=== PATIENT | female | born 1950 | race Caucasian/White ===

== ENCOUNTER → 2016-10-07 | Outpatient (CLI) | payer MEDICARE ==
[~2016-10-07] MED LIST: ALPR1T PO; BUPR150T14 PO; BUPR150T7 PO; CALC-654 PO; CALC1CAP21 PO; CARV12.5 PO; CHOL20003 PO; FESO8TAB PO; HYDR25TA4 PO; LEVO500T2 PO; MULT-301 PO; NAPR220C PO; OMEP-10 PO
== END ==
LOC: RAD 09:54
PROVIDERS: ATTEND Internal Medicine
DX: Z12.31 Encounter for screening mammogram for malignant neoplasm of breast (principal)
CPT/HCPCS: 77067

== ENCOUNTER 2017-11-11 00:12 | Emergency (ER) | payer MEDICARE ==
[~2017-11-11] VITALS: Ht 177.8 cm; Wt 68.0 kg
[2017-11-11] MEDS ORDERED: LACTATED RINGERS 1,000 ML IV ONE (00:16)
--- NOTE | 2017-11-11 00:24 | ED Fall/Injury ---
General Chief Complaint: Trauma-Non Activation Stated Complaint: FALL Source: family (DAUGHTER), EMS Exam Limitations: intoxication, other (PT HAS NO RECOLLECTION OF EVENT) History of Present Illness Date Seen by Provider: Nov 11, 2017 Time Seen by Provider: 00:10 Initial Comments PT ARRIVES VIA EMS FROM HOME--CERVICAL COLLAR IN PLACE PT FELL IN THE BATHROOM AND HIT HER HEAD, WITH REPORTED LOSS OF CONSCIOUSNESS OF AT LEAST 30 SECONDS PER DAUGHTER --DAUGHTER DID NOT ACTUALLY WITNESS IT, BUT HEARD IT, AND FOUND HER UNRESPONSIVE ON THE FLOOR PT C/O PAIN TO BACK OF HEAD DAUGHTER REPORTED TO EMS THAT PT HAS BEEN DRINKING WINE, AND HAS HAD AT LEAST 4- 5 GLASSES OF WINE TONIGHT. PT STATES SHE HAS NOT EATEN AT ALL TODAY AND DOES NOT DRINK VERY OFTEN PT HAS NO RECOLLECTION OF EVENT, DOES NOT KNOW WHAT SHE HIT HER HEAD ON, AND DOES NOT KNOW WHAT SHE WAS DOING IN THE BATHROOM, BUT ARRIVES IN HER SHIRT AND UNDERWEAR ONLY. DENIES ANY CHANGES IN VISION DENIES NAUSEA/VOMITING DENIES PARESTHESIAS OR MOTOR DEFICITS DENIES PAIN ANYWHERE EXCEPT THE BACK OF HER HEAD Allergies and Home Medications Allergies Coded Allergies: No Known Drug Allergies (Unverified , 08/25/15) Home Medications Alprazolam 1 Mg Tab, 1 MG PO DAILY, (Reported) Bupropion HCl 150 Mg Tab.er.24h, 300 MG PO DAILY, (Reported) TAKES 2 (150MG) TABLETS Calcium Carbonate/Vitamin D3 1 Each Capsule, 1 CAP PO DAILY, (Reported) Carvedilol 12.5 Mg Tablet, 12.5 MG PO BID, (Reported) Cholecalciferol (Vitamin D3) 2,000 Unit Capsule, 2,000 UNIT PO DAILY, (Reported) Fesoterodine Fumarate 8 Mg Tab.sr.24h, 8 MG PO DAILY, (Reported) Hydrochlorothiazide 25 Mg Tablet, 25 MG PO DAILY, (Reported) Levofloxacin 500 Mg Tablet, 500 MG PO DAILY Prescribed by: KEITH NUNEZ on 08/27/15 0800 Multivitamin 1 Each Tablet, 1 TAB PO DAILY, (Reported) Omeprazole 20 Mg Capsule.dr, 20 MG PO DAILY, (Reported) Patient Home Medication List Home Medication List Reviewed: Yes Review of Systems Constitutional: see HPI Musculoskeletal: No back pain, No neck pain Psychiatric/Neurological: See HPI Past Mqyoxmq-Fhyafb-Nhxjnt Hx Patient Social History Alcohol Use: Occasionally Uses Recreational Drug Use: No Smoking Status: Never a Smoker Recent Foreign Travel: No Contact w/Someone Who Travel: No Immunizations Up To Date Date of Influenza Vaccine: Feb 07, 2015 Past Medical History Surgeries: Yes (EGD/COLONOSCOPY) Section, Hysterectomy Respiratory: No Currently Using CPAP: No Currently Using BIPAP: No Cardiac: Yes Hypertension Neurological: No Reproductive Disorders: Yes (, HYSTERECTOMY) Female Reproductive Disorders: Denies 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, 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 Sexually Transmitted Disease: No HIV/AIDS: No Genitourinary: No Gastrointestinal: Yes Colitis Musculoskeletal: No Endocrine: No HEENT: No Cancer: No Psychosocial: Yes Anxiety Integumentary: No Blood Disorders: No Family Medical History Arthritis No Pertinent Family Hx Physical Exam Vital Signs Vital Signs - First Documented 11/11/17 00:15 Temp 98.2 Pulse 71 Resp 14 B/P (MAP) 119/83 (95) Pulse Ox 98 Capillary Refill : Height, Weight, BMI Height: 5', 10.00" Weight: 150lbs 0.0oz, [id number] Method:Stated ,21.5BMI General Appearance: no apparent distress, thin, other (IN CERVICAL COLLAR; + ODOR OF ETOH; SPEECH SLIGHTLY SLURRED. ) HEENT: PERRL/EOMI, other (PT WITH LARGE HEMATOMA TO LEFT POSTERIOR PARIETAL AREA. VERY TENDER TO PALPATION) Cardiovascular: regular rate, rhythm, no murmur Respiratory: chest non-tender, normal breath sounds, no respiratory distress, no accessory muscle use Gastrointestinal: normal bowel sounds, non tender, soft, no organomegaly, no pulsatile mass Back: normal inspection, no CVA tenderness, no vertebral tenderness Extremities: normal range of motion, non-tender, normal inspection, no pedal edema, no calf tenderness, normal capillary refill Neurologic/Psychiatric: crepe box tender II-XII nml as tested, no motor/sensory deficits, alert, normal mood/affect, oriented x 3 (BUT NO RECOLLECTION OF EVENT) Skin: normal color, warm/dry [place] Coma Score Best Eye Response: (4) Open Spontaneously Best Verbal Response: (5) Oriented Best Motor Response: (6) Obeys Commands June Total: 15 Progress/Results/Core Measures Results/Orders Lab Results Laboratory Tests Test 11/11/17 01:23 Range/Units White Blood Count 5.6 4.3-11.0 10^3/uL Red Blood Count 4.03 L 4.35-5.85 10^6/uL Hemoglobin 13.0 11.5-16.0 G/DL Hematocrit 38 35-52 % Mean Corpuscular Volume 93 80-99 FL Mean Corpuscular Hemoglobin 32 25-34 PG Mean Corpuscular Hemoglobin Concent 35 32-36 G/DL Red Cell Distribution Width 13.7 10.0-14.5 % Platelet Count 295 130-400 10^3/uL Mean Platelet Volume 9.2 7.4-10.4 FL Neutrophils (%) (Auto) 70 42-75 % Lymphocytes (%) (Auto) 22 12-44 % Monocytes (%) (Auto) 6 0-12 % Eosinophils (%) (Auto) 2 0-10 % Basophils (%) (Auto) 1 0-10 % Neutrophils # (Auto) 3.9 1.8-7.8 X 10^3 Lymphocytes # (Auto) 1.2 1.0-4.0 X 10^3 Monocytes # (Auto) 0.3 0.0-1.0 X 10^3 Eosinophils # (Auto) 0.1 0.0-0.3 10^3/uL Basophils # (Auto) 0.0 0.0-0.1 10^3/uL Prothrombin Time 13.4 12.2-14.7 SEC INR Comment 1.0 0.8-1.4 Activated Partial Thromboplast Time 29 24-35 SEC Sodium Level 137 135-145 MMOL/L Potassium Level 3.3 L 3.6-5.0 MMOL/L Chloride Level 102 98-107 MMOL/L Carbon Dioxide Level 24 21-32 MMOL/L Anion Gap 11 5-14 MMOL/L Blood Urea Nitrogen 19 H 7-18 MG/DL Creatinine 0.82 0.60-1.30 MG/DL Estimat Glomerular Filtration Rate > 60 BUN/Creatinine Ratio 23 Glucose Level 95 70-105 MG/DL Calcium Level 9.1 8.5-10.1 MG/DL Magnesium Level 2.3 1.8-2.4 MG/DL Total Bilirubin 0.4 0.1-1.0 MG/DL Aspartate Amino Transf (AST/SGOT) 23 5-34 U/L Alanine Aminotransferase (ALT/SGPT) 19 0-55 U/L Alkaline Phosphatase 48 40-136 U/L Troponin I < 0.30 <0.30 NG/ML Total Protein 6.4 6.4-8.2 GM/DL Albumin 4.2 3.2-4.5 GM/DL Acetaminophen Level < 10 L 10-30 UG/ML Serum Alcohol 209 H <10 MG/DL My Orders Orders - MAGDALENA HAMILTON DO Saline Lock/Iv-Start (11/11/17 00:16) Ekg Tracing (11/11/17 00:16) Monitor-Rhythm Ecg Trace Only (11/11/17 00:16) Ct Head/Cervical Spine Wo (11/11/17 00:16) Ct Thoracic/Lumbar Spine Wo (11/11/17 00:16) Acetaminophen (11/11/17 00:16) Alcohol (11/11/17 00:16) Cbc With Automated Diff (11/11/17 00:16) Comprehensive Metabolic Panel (11/11/17 00:16) Drug Screen Stat (Urine) (11/11/17 00:16) Magnesium (11/11/17 00:16) Protime With Inr (11/11/17 00:16) Partial Thromboplastin Time (11/11/17 00:16) Troponin I (11/11/17 00:16) Ua Culture If Indicated (11/11/17 00:16) Chest 1 View, Ap/Pa Only (11/11/17 00:16) Pelvis (11/11/17 00:16) Saline Lock/Iv-Start (11/11/17 00:16) Lactated Ringers (Lr 1000 Ml Iv Solution (11/11/17 00:16) Ct Chest Wo (11/11/17 01:13) Ondansetron Injection (Zofran Injectio (11/11/17 01:30) Vital Signs/I&O 11/11/17 11/11/17 00:15 02:40 Temp 98.2 98.2 Pulse 71 75 Resp 14 14 B/P (MAP) 119/83 (95) 103/59 (95) Pulse Ox 98 91 Progress Progress Note : Progress Note FEELS MUCH BETTER AT DISMISSAL PT TOLERATING ICE CHIPS AND WATER PRIOR TO DISMISSAL SPEECH CLEAR AND GAIT STEADY AT DISMISSAL DAUGHTER TO STAY WITH PT TONIGHT Initial ECG Impression Date: Nov 11, 2017 Initial ECG Impression Time: 00:16 Initial ECG Rate: 68 Initial ECG Rhythm: Normal Sinus Initial ECG Impression: Nonspecific Changes Initial ECG Comparisson: No Previous ECG Available Diagnostic Imaging Comments CT HEAD/CERVICAL SPINE--LEFT PARIETAL SCALP HEMATOMA, DEGENERATIVE CHANGES OF CERVICAL SPINE, OTHERWISE NO ACUTE PROCESS--PER RADIOLOGIST VIA PHONE AT 0111 CT THORACIC/LUMBAR SPINE--NO ACUTE BONY INJURY, QUESTIONABLE TINY LEFT PNEUMOTHORAX AT [facility]. RECOMMENDS CT CHEST--PER RADIOLOGIST VIA PHONE AT 0111 FAXED REPORTS RECEIVED AT 0137--ALSO NOTED TO HAVE DEGENERATIVE CHANGES OF SPINE CT CHEST--NO ACUTE PROCESS, NO PNEUMOTHORAX--PER [facility] VIA FAX @ 0218 CXR--NO ACUTE PROCESS PELVIS XRAY--NO ACUTE PROCESS PENDING RADIOLOGIST REVIEW Reviewed: Reviewed by Me, Discussed w/Radiologist Departure Impression Primary Impression: Concussion with brief loss of consciousness Additional Impressions: Alcohol intoxication CERVICAL SPINE STRAIN Hematoma of left parietal scalp Disposition: HOME, SELF-CARE Condition: Improved Departure-Patient Inst. Referrals: KEITH NUNEZ MD (PCP/Family) Primary Care Physician Patient Instructions: Alcohol Level, Cervical Muscle Strain (DC), Concussion, Adult (DC), Contusion (DC), HEMATOMA Add. Discharge Instructions: ICE TO SORE AREAS AT 20 MINUTE INTERVALS TYLENOL NEEDED FOR PAIN LOTS OF CLEAR LIQUIDS DO NOT SKIP MEALS NO ALCOHOL FOLLOW UP WITH YOUR DR NEEDED RETURN TO ER IF SYMPTOMS WORSEN All discharge instructions reviewed with patient and/or family. Voiced understanding. MAGDALENA HAMILTON DO Nov 11, 2017 00:24
[2017-11-11 01:29] LABS: BASOPHILS % (AUTO) 1 % (0-10); EOSINOPHILS # (AUTO) 0.1 10^3/uL (0.0-0.3); EOSINOPHILS % (AUTO) 2 % (0-10); HEMATOCRIT 38 % (35-52); LYMPHOCYTES # (AUTO) 1.2 X 10^3 (1.0-4.0); LYMPHOCYTES % (AUTO) 22 % (12-44); MEAN CORPUSCULAR HEMOGLOBIN 32 PG (25-34); MEAN CORPUSCULAR HGB CONC 35 G/DL (32-36); MEAN CORPUSCULAR VOLUME 93 FL (80-99); MEAN PLATELET VOLUME 9.2 FL (7.4-10.4); MONOCYTES # (AUTO) 0.3 X 10^3 (0.0-1.0); MONOCYTES % (AUTO) 6 % (0-12); NEUTROPHILS # (AUTO) 3.9 X 10^3 (1.8-7.8); NEUTROPHILS % (AUTO) 70 % (42-75); PLATELET COUNT 295 10^3/uL (130-400); RED BLOOD COUNT 4.03 10^6/uL (4.35-5.85); RED CELL DISTRIBUTION WIDTH 13.7 % (10.0-14.5); WHITE BLOOD COUNT 5.6 10^3/uL (4.3-11.0)
[2017-11-11] MEDS ORDERED: ONDANSETRON 4 MG/2 ML (SDV) Z0FRAN IVP ONE (01:30)
[2017-11-11 01:39] LABS: PROTHROMBIN TIME PATIENT 13.4 SEC (12.2-14.7)
[2017-11-11 01:49] LABS: ALANINE AMINOTRANSFERASE 19 U/L (0-55); ALBUMIN 4.2 GM/DL (3.2-4.5); ALKALINE PHOSPHATASE 48 U/L (40-136); BILIRUBIN,TOTAL 0.4 MG/DL (0.1-1.0); BUN/CREATININE RATIO 23; CALCIUM 9.1 MG/DL (8.5-10.1); CARBON DIOXIDE 24 MMOL/L (21-32); CHLORIDE 102 MMOL/L (98-107); CREATININE SERUM 0.82 MG/DL (0.60-1.30); GFR ESTIMATED > 60; GLUCOSE 95 MG/DL (70-105); MAGNESIUM 2.3 MG/DL (1.8-2.4); POTASSIUM 3.3 MMOL/L (3.6-5.0); SODIUM 137 MMOL/L (135-145); TOTAL PROTEIN 6.4 GM/DL (6.4-8.2)
[2017-11-11 01:50] LABS: ACETAMINOPHEN < 10 UG/ML (10-30)
[2017-11-11 02:40] VITALS: BP 103/59
--- NOTE | 2017-11-11 05:54 | Diagnostic Imaging Report ---
PROCEDURE: CT chest without contrast. TECHNIQUE: Multiple contiguous axial images were obtained through the chest without the use of intravenous contrast. INDICATION: Fall with chest injury Noncontrasted axial CT images of the thorax reveal no evidence of pneumothorax. There is no evidence of pleural fluid. No consolidation or pulmonary contusion is identified. There is no evidence of mediastinal hematoma or fluid collection. Occasional mildly prominent mediastinal lymph nodes are noted without evidence of pathologic adenopathy. There is mild thoracic spondylosis without evidence of fracture or subluxation. IMPRESSION: No CT evidence of acute thoracic abnormality. Dictated by: Dictated on workstation # [id number]
--- NOTE | 2017-11-11 06:08 | Diagnostic Imaging Report ---
INDICATION: Fall with back pain Multiple contiguous axial CT images are obtained through the thoracic and lumbar spine with sagittal and coronal reformatted images produced. There is advanced disc space narrowing and endplate spurring with associated endplate sclerosis in the visualized cervical spine. Thoracic spinal curvature and alignment are unremarkable. Vertebral body heights and disc spaces are maintained without evidence of fracture. There is mild levorotoscoliosis of the lumbar spine with disc space narrowing most pronounced at the L1-2 level. There is multilevel disc bulging. Advanced degenerative facet arthropathy is present at L4-5 and L5-S1 with grade 1 anterolisthesis of L4 on L5, however, no acute fracture or malalignment is identified and there is no evidence of paraspinous hematoma. IMPRESSION: No acute thoracic spinal abnormality is identified. There is moderate levorotoscoliosis and spondylosis in the lumbar spine without acute fracture detected. Dictated by: Dictated on workstation # [id number]
--- NOTE | 2017-11-11 06:11 | Diagnostic Imaging Report ---
PROCEDURE: CT head and CT cervical spine without contrast. TECHNIQUE: Multiple contiguous axial images were obtained through the brain and cervical spine without the use of intravenous contrast. Sagittal and coronal reformations through the cervical spine were then performed. INDICATION: Fall with head and neck injury CT head: CT HEAD: Multiple contiguous axial CT images of the head were obtained. FINDINGS: Ventricles and sulci are within normal limits for size. There is no intracranial hemorrhage identified. There is no abnormal mass effect or shift of midline structures. There is a large left parietal scalp hematoma without underlying fracture. Left parietal scalp hematoma without CT evidence of acute intracranial abnormality. CT cervical spine: There is reversal of the cervical lordosis with extensive disc space narrowing and plate spurring in the lower and mid cervical spine regions. There is no evidence of acute fracture or malalignment. No paraspinous hematoma is detected. IMPRESSION: Rather advanced cervical spondylosis without CT evidence of acute cervical spinal abnormality. Dictated by: Dictated on workstation # [id number]
--- NOTE | 2017-11-11 07:46 | Diagnostic Imaging Report ---
INDICATION: Fall with chest injury. EXAMINATION: Single AP view of the chest is obtained. COMPARISON: No previous study is available for comparison at this time. FINDINGS: Heart size and pulmonary vasculature are within normal limits, and the lungs are clear, bilaterally. IMPRESSION: Unremarkable chest. Dictated by: Dictated on workstation # [id number]
--- NOTE | 2017-11-11 07:55 | Diagnostic Imaging Report ---
INDICATION: Fall with pelvic injury and pain AP view of the pelvis is obtained which reveals mild lower lumbar degenerative changes and mild ostearthritis involving the hips. 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 There is no evidence of an acute fracture. IMPRESSION: No acute pelvic injury is identified. Dictated by: Dictated on workstation # [id number]
== END 2017-11-11 02:39 | disposition home or self-care (01) ==
LOC: EDUNIT# 00:12 → ER 00:14
DX: S06.0X1A Concussion with loss of consciousness of 30 minutes or less, initial encounter (principal); S16.1XXA Strain of muscle, fascia and tendon at neck level, initial encounter; F10.129 Alcohol abuse with intoxication, unspecified; I10 Essential (primary) hypertension; R40.2142 Coma scale, eyes open, spontaneous, at arrival to emergency department; R40.2252 Coma scale, best verbal response, oriented, at arrival to emergency department; R40.2362 Coma scale, best motor response, obeys commands, at arrival to emergency department; F41.9 Anxiety disorder, unspecified; Z87.19 Personal history of other diseases of the digestive system; Z87.59 Personal history of other complications of pregnancy, childbirth and the puerperium; Z90.710 Acquired absence of both cervix and uterus; W01.198A Fall on same level from slipping, tripping and stumbling with subsequent striking against other object, initial encounter; Y92.002 Bathroom of unspecified non-institutional (private) residence as the place of occurrence of the external cause
CPT/HCPCS: 36415; 70450; 71045; 71250; 72125; 72128; 72131; 72170; 80053; 80320; 80329; 83735; 84484; 85025; 85610; 85730; 93005; 93041

== ENCOUNTER → 2019-02-26 | Outpatient (CLI) | payer MEDICARE ==
--- NOTE | 2019-02-26 13:38 | Diagnostic Imaging Report ---
INDICATION: Routine screening. COMPARISON: 12/26/2017 and 10/07/2016. TECHNIQUE: 2D and 3D bilateral screening mammography was performed with CAD. FINDINGS: Both breasts remain heterogeneously dense, limiting the sensitivity of mammography. No mass or malignant appearing microcalcifications are seen. There are benign calcifications present. The axillae are unremarkable. IMPRESSION: No mammographic features suspicious for malignancy are identified. ACR BI-RADS Category 2: Benign findings. Result letter will be mailed to the patient. Note: At least 10% of breast cancer is not imaged by mammography. Dictated by: Dictated on workstation # [id number]
== END ==
LOC: RAD 07:43
PROVIDERS: ATTEND Internal Medicine
DX: Z12.31 Encounter for screening mammogram for malignant neoplasm of breast (principal)
CPT/HCPCS: 77067

== ENCOUNTER → 2020-04-10 | Outpatient (CLI) | payer MEDICARE ==
--- NOTE | 2020-04-13 09:51 | Diagnostic Imaging Report ---
INDICATION: Routine screening. COMPARISON: 02/26/2019 and 12/26/2017. TECHNIQUE: 2D and 3D bilateral screening mammography was performed with CAD. FINDINGS: Both breasts are heterogeneously dense, limiting the sensitivity of mammography. Scattered benign-appearing calcifications are identified bilaterally. No dominant mass or malignant appearing microcalcifications are seen. The axillae are unremarkable. IMPRESSION: No mammographic features suspicious for malignancy are identified. ACR BI-RADS Category 2: Benign findings. Result letter will be mailed to the patient. Note: At least 10% of breast cancer is not imaged by mammography. Dictated by: Dictated on workstation # [id number]
== END ==
LOC: RAD 12:34
PROVIDERS: ATTEND Internal Medicine
DX: Z12.31 Encounter for screening mammogram for malignant neoplasm of breast (principal)
CPT/HCPCS: 77063; 77067

== ENCOUNTER → 2021-06-21 | Outpatient (CLI) | payer MEDICARE ==
[~2021-06-21] MED LIST changes: +BUPR150T24 PO; -BUPR150T7 PO
== END ==
LOC: RAD 10:24
PROVIDERS: ATTEND Internal Medicine
DX: Z12.31 Encounter for screening mammogram for malignant neoplasm of breast (principal)
CPT/HCPCS: 77063; 77067

== ENCOUNTER 2021-09-16 05:39 | Outpatient (CLI) | payer MEDICARE ==
[~2021-09-16] VITALS: Ht 170 cm; Wt 62.3 kg
== END 2021-09-16 12:27 | disposition home or self-care (01) ==
LOC: PREOP 05:39
PROVIDERS: ATTEND Internal Medicine
DX: Z01.818 Encounter for other preprocedural examination (principal)

== ENCOUNTER 2021-09-24 07:27 | Day surgery (SDC) | payer MEDICARE ==
--- NOTE | 2021-09-16 08:13 | HISTORY AND PHYSICAL ---
DATE OF SERVICE: PANENDOSCOPY HISTORY AND PHYSICAL HISTORY OF PRESENT ILLNESS: The patient is a 71-year-old white female who was here for followup of hypertension. She reports that there has been some increased stress and she was having difficulty with sleep onset insomnia, which has been an intermittent issue for her in the past. This is aggravated by pain in the right buttock area radiating down the right leg that wakes her up from sleep several nights a week. She changes position in bed and does not typically have to get out of bed. If she stands for too long, she will sometimes have some mild symptoms during the day, but usually ambulation does not aggravate this. 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 In review of her medical record, it has been 6 years since her last EGD. She will occasionally note some bright red blood per rectum without abdominal pain or bowel habit change. Her last colonoscopy was a little over 8 years ago with no evidence for neoplasia at that time. She refuses to weigh feeling that her weight is gone up a little bit. She reports no change in how her clothing is fitting however. PHYSICAL EXAMINATION: GENERAL: Reveals white female appeared to be in no acute distress. HEENT: Unremarkable. No evidence for pallor. Sclerae nonicteric. VITAL SIGNS: Blood pressure 130/86. CHEST: Clear. CARDIOVASCULAR: Reveals regular rate and rhythm without murmur, S3 or S4. ABDOMEN: Soft, supple without mass, organomegaly or tenderness. EXTREMITIES: Reveal no cyanosis, clubbing or edema. ASSESSMENT AND PLAN: 1. Recent dysphagia and history of short segment Michaud's. The patient is being set up for diagnostic EGD. At that time, due to some bright red blood per rectum will be set up for diagnostic colonoscopy as well. 2. Right lumbar radiculopathy, mild. Considering this and sleep onset insomnia, we will try CBD 10 mg twice daily. She was advised to give this a 1-month. If symptoms are worsening, discuss MRI would need to be repeated. She had some similar circumstances 4 years ago with consideration for referral likely pain management first. Otherwise, we will be seeing her back in six months with a repeat yearly basic metabolic panel and lipid panel for screening purposes and hypertension evaluation. Job ID: [id number] DocumentID: [id number] Dictated Date: 08/26/2021 11:45:04 Electrical Accessories Ii Assembler Date: 08/26/2021 12:24:52 Dictated By: KEITH NUNEZ MD
[2021-09-24] VITALS (7 sets, daily range): BP systolic 118–161; BP diastolic 60–89
[~2021-09-24] VITALS: Ht 170 cm; Wt 62.3 kg
[2021-09-24] MEDS ORDERED: LACTATED RINGERS 1,000 ML IV STA (07:35)
[2021-09-24] MEDS ORDERED: LACTATED RINGERS 1,000 ML IV ONE (07:39)
[2021-09-24] MEDS ORDERED: PROPOFOL INJECTION 50 ML IV ONE (07:40)
[2021-09-24] MEDS ORDERED: MIDAZOLAM 2 MG/2 ML (VERSED) VIAL ONE (07:40)
[2021-09-24] MEDS ORDERED: HURRICAINE EXT TUBE (BENZOCAINE) XX PRN (07:45)
--- NOTE | 2021-09-24 07:55 | Pre-Op Note & Conscious Sedat ---
Pre-Operative Progress Note H&P Reviewed The H&P was reviewed, patient examined and no changes noted. Date H&P Reviewed: September 24, 2021 Time H&P Reviewed: 07:55 Conscious Sedation Pre-Proced ASA Score 2 For ASA 3 and 4: Consider anesthesia and medical clearance. Also, for patients with a history of failed moderate sedation consider anesthesia. Airway Lungs Heart ASA score ASA 1: a normal healthy patient ASA 2: a patient with a mild systemic disease (mid diabetes, controlled hypertension, obesity ASA 3: a patient with a severe systemic disease that limits activity (angina, COPD, prior Myocardial infarction) ASA 4: a patient with an incapacitating disease that is a constant threat to life (CHF, renal failure) ASA 5: a moribund patient not expected to survive 24 hrs. (ruptured aneurysm) ASA 6: a declared brain- patient whose organs are being harvested. For emergent operations, add the letter E after the classification Mallampati Classification Grade 1 Sedation Plan Analgesia, Amnesia, Plan communicated to team members, Discussed options with patient/fam, Discussed risks with patient/fam The patient is an appropriate candidate to undergo the planned procedure, sedation, and anesthesia. The patient immediately re-assessed prior to indication. KEITH NUNEZ MD September 24, 2021 07:55
[2021-09-24] MEDS ORDERED: proPOfol 200 MG/20 ML (DIPRIVAN) VIAL IV ONE (08:42)
--- NOTE | 2021-09-24 13:09 | Anesthesia-General Post-Op ---
MAC Patient Condition Mental Status/LOC: Same as Preop Cardiovascular: Satisfactory Nausea/Vomiting: Absent Respiratory: Satisfactory Pain: Controlled Complications: Absent Post Op Complications Complications None Follow Up Care/Instructions Patient Instructions None needed. Anesthesiology Discharge Order Discharge Order Patient is doing well, no complaints, stable vital signs, no apparent adverse anesthesia problems. No complications reported per nursing. JUANA CABRERA CRNA September 24, 2021 13:09
--- NOTE | 2021-09-24 15:30 | OPERATIVE REPORT ---
DATE OF SERVICE: PANENDOSCOPY SUMMARY INDICATION FOR THE PROCEDURE: Surveillance for short segment Michaud's and intermittent bright red blood per rectum. DESCRIPTION OF PROCEDURE: The patient was placed in the left lateral decubitus position. The endoscope was inserted in the oral cavity and under direct visualization, the esophagus was intubated. Endoscope was passed down the esophagus through stomach and second portion of the duodenum. Careful inspection was made as the endoscope was withdrawn. FINDINGS: The posterior pharynx, true and false vocal folds and arytenoid aperture as well as epiglottis were unremarkable to gross inspection. The proximal and mid esophagus were unremarkable. There was a projection extending 1-2 cm of columnar appearing mucosa extending from the Z-line without evidence for erosive esophagitis suggestive of short segment Michaud's. No nodularity or ulceration was noted. There was no evidence for hiatal hernia formation. Biopsies were obtained and submitted for histopathology. No evidence of rings, webs, strictures were noted. The cardia, fundus, antrum, pylorus, pyloric channel, duodenal bulb and second portion of duodenum were unremarkable to gross inspection. ASSESSMENT: Findings suggestive of short segment Michaud's without evidence for erosive esophagitis or other concerning findings were noted, but otherwise unremarkable EGD. Biopsies were obtained and we will await the results before making recommendation for future surveillance EGD. We then proceeded with colonoscopy. DESCRIPTION OF PROCEDURE: Prior to doing colonoscopy, digital rectal evaluation was performed. Anal sphincter tone was normal and the perianal reflexes intact. No abnormalities were noted on digital inspection of anal canal or distal rectal vault. The colonoscope was then inserted into the rectum and under direct visualization advanced to cecum. The cecum was identified by identification of ileocecal valve and cecal strap. Photographic documentation was obtained. Quality of the prep was suboptimal, would roughly estimate 5% of the colon not being visualized secondary to retained stool. FINDINGS: There were no evidence for internal or external hemorrhoids. The rectum, sigmoid colon, descending colon, splenic flexure, transverse colon and hepatic flexure were unremarkable. No evidence for diverticular disease was noted. There was a 4 mm sessile polyp noted in the proximal ascending colon. It was photographed and biopsied and ablated with no blood loss. Remainder of the ascending colon and cecum were unremarkable. ASSESSMENT: One sessile 4 mm polyp was biopsied and cauterized via hot forceps from the proximal ascending colon. This was otherwise normal colonoscopy; however, under suboptimal prep conditions as noted above. We will await histopathology before making recommendations for future surveillance colonoscopy. Job ID: [id number] DocumentID: [id number] Dictated Date: 09/24/2021 09:11:13 Distribution Transformer Assembler Date: 09/24/2021 15:30:10 Dictated By: KEITH NUNEZ MD MTDD
== END 2021-09-24 10:00 | disposition home or self-care (01) ==
LOC: ENDO 07:27
PROVIDERS: ATTEND Internal Medicine
DX: D12.2 Benign neoplasm of ascending colon (principal); K22.70 Barrett's esophagus without dysplasia; K62.5 Hemorrhage of anus and rectum; K22.89 Other specified disease of esophagus; G47.09 Other insomnia; M54.16 Radiculopathy, lumbar region; Z87.891 Personal history of nicotine dependence
CPT/HCPCS: 88305

== ENCOUNTER → 2022-06-22 | Outpatient (CLI) | payer MEDICARE ==
--- NOTE | 2022-06-22 16:15 | Diagnostic Imaging Report ---
INDICATION: Routine screening. COMPARISON: 06/21/2021 and 04/10/2020. TECHNIQUE: 2D and 3D bilateral screening mammography was performed with FINDINGS: Both breasts are heterogeneously dense, limiting the sensitivity of mammography. The parenchymal pattern is stable. No mass or malignant-appearing microcalcifications are seen. The axillae are unremarkable. IMPRESSION: No mammographic features suspicious for malignancy are identified. ACR BI-RADS Category 1: Negative. Result letter will be mailed to the patient. Note: At least 10% of breast cancer is not imaged by mammography. Dictated by: Dictated on workstation # [id number]
== END ==
LOC: RAD 10:00
PROVIDERS: ATTEND Internal Medicine
DX: Z12.31 Encounter for screening mammogram for malignant neoplasm of breast (principal)
CPT/HCPCS: 77063; 77067